=== PATIENT | female | born 1975 | race Hispanic/Latino ===

== ENCOUNTER 2016-09-06 16:42 | Emergency (ER) | payer MEDICARE ==
--- NOTE | 2016-09-06 18:56 | Cat Scan Report ---
FINAL REPORT PROCEDURE: CT HEAD/BRAIN WO CON TECHNIQUE: Computerized tomography of the head was performed without contrast material. HISTORY: headache/earache/hypertension COMPARISON: No prior studies are available for comparison. FINDINGS: No CT evidence of intracranial mass, hemorrhage, acute territorial infarction, or hydrocephalus. The intracranial arteries are symmetric in density. Calvarium is intact. Visualized paranasal sinuses and mastoids are aerated. IMPRESSION: No CT evidence of acute abnormality
[2016-09-06 18:59] LABS: Basophils % (Auto) 0.5 % (0.0-1.8); Eosinophils % (Auto) 1.6 % (0.0-4.3); Hematocrit 37.5 % (30.3-42.9); Mean Corpuscular HGB Conc 35 % (30-34); Mean Corpuscular Hemoglobin 30 pg (28-32); Mean Corpuscular Volume 87 fl (79-97); Platelet Count 233 K/mm3 (140-440); Red Blood Count 4.33 M/mm3 (3.65-5.03); Red Cell Distribution Width 12.9 % (13.2-15.2); White Blood Count 8.7 K/mm3 (4.5-11.0)
[2016-09-06 19:04] LABS: Anion Gap 12 mmol/L; BUN/Creatinine Ratio 14.28; Blood Urea Nitrogen 10 mg/dL (7-17); Calcium 8.8 mg/dL (8.4-10.2); Carbon Dioxide 29 mmol/L (22-30); Glucose 369 mg/dL (65-100); Potassium 3.9 mmol/L (3.6-5.0); Sodium 134 mmol/L (137-145)
[2016-09-06 23:46] VITALS: BP 193/91
--- NOTE | 2016-09-06 23:48 | Emergency Department Report ---
ED ENT HPI - General Chief complaint: Headache Stated complaint: LEFT EAR BLOCKED/PAIN Time Seen by Provider: 09/06/16 23:24 Source: patient Mode of arrival: Ambulatory Limitations: No Limitations - History of Present Illness Initial comments: 41-year-old female with past medical history insulin-dependent diabetes ( insulin pump), hypertension, impaired peripheral vision surgery presents to Hospital complaints of left ear pain. Patient complaining of left ear pain 1 week. She states that it feels like it is clogged with decreased hearing and intermittent ringing. The pain to her left ear as aching, rated 5/5 in intensity, radiates to her head. She was evaluated at [facility] and after her ear was evaluated she was told it was normal. Decongestions were suggested. Patient uses a nasal decongestions without improvement. Patient denies that her nose is congested. Patient presents with elevated blood pressure. She did not take her blood pressure last night or today. She also has increase her salty food intake the last several days. No complaints of nausea, vomiting, fever, or neck stiffness. - Related Data Previous Rx's Medication Instructions Recorded Last Taken Type Aspirin [Aspirin TAB] 325 mg PO QDAY #30 tablet 11/19/15 Unknown Rx Clopidogrel [Plavix] 75 mg PO QDAY #30 tablet 11/19/15 Unknown Rx Ibuprofen [Motrin 800 MG tab] 800 mg PO Q6H PRN #14 tablet 11/19/15 Unknown Rx Metoprolol [Lopressor TAB] 50 mg PO BID #60 tablet 11/19/15 Unknown Rx Simvastatin [Zocor TAB] 20 mg PO QHS #30 tablet 11/19/15 Unknown Rx amLODIPine [Norvasc] 10 mg PO DAILY #30 tablet 11/19/15 Unknown Rx Allergies Allergy/AdvReac Type Severity Reaction Status Date / Time No Known Allergies Allergy Verified 07/07/13 03:53 ED Dental HPI - General Chief complaint: Headache Stated complaint: LEFT EAR BLOCKED/PAIN Time Seen by Provider: 09/06/16 23:24 Source: patient Mode of arrival: Ambulatory Limitations: No Limitations - Related Data Previous Rx's Medication Instructions Recorded Last Taken Type Aspirin [Aspirin TAB] 325 mg PO QDAY #30 tablet 11/19/15 Unknown Rx Clopidogrel [Plavix] 75 mg PO QDAY #30 tablet 11/19/15 Unknown Rx Ibuprofen [Motrin 800 MG tab] 800 mg PO Q6H PRN #14 tablet 11/19/15 Unknown Rx Metoprolol [Lopressor TAB] 50 mg PO BID #60 tablet 11/19/15 Unknown Rx Simvastatin [Zocor TAB] 20 mg PO QHS #30 tablet 11/19/15 Unknown Rx amLODIPine [Norvasc] 10 mg PO DAILY #30 tablet 11/19/15 Unknown Rx Allergies Allergy/AdvReac Type Severity Reaction Status Date / Time No Known Allergies Allergy Verified 07/07/13 03:53 ED Review of Systems ROS: Stated complaint: LEFT EAR BLOCKED/PAIN Other details as noted in HPI Comment: All other systems reviewed and negative Other: Constitutional: No fevers chills Eyes: No eye pain visual changes ENT:as per hpi Neck: Denies pain Respiratory: Denies cough wheezing shortness of breath Cardiovascular: Denies chest pain, palpitations, syncope GI: Denies abdominal pain, nausea, vomiting, diarrhea : Denies dysuria Musculoskeletal: Denies back pain Skin: Denies rash, lesions, erythema Neurologic: Denies numbness, weakness Psychiatric: Denies suicidal ideation, hallucinations ED Past Medical Hx - Past Medical History Hx Hypertension: Yes Hx Congestive Heart Failure: No Hx Diabetes: Yes Hx Asthma: Yes Hx COPD: No Hx HIV: No Additional medical history: peripheral vision impaired. - Surgical History Hx Pacemaker: No Additional Surgical History: Laser surgery of her retina, cataract surgery, C- section, tubal ligation and endometrial ablation. - Social History Smoking Status: Former Smoker Substance Use Type: None - Medications Home Medications: Home Medications Medication Instructions Recorded Confirmed Last Taken Type Aspirin [Aspirin TAB] 325 mg PO QDAY #30 tablet 11/19/15 Unknown Rx Clopidogrel [Plavix] 75 mg PO QDAY #30 tablet 11/19/15 Unknown Rx Ibuprofen [Motrin 800 MG tab] 800 mg PO Q6H PRN #14 tablet 11/19/15 Unknown Rx Metoprolol [Lopressor TAB] 50 mg PO BID #60 tablet 11/19/15 Unknown Rx Simvastatin [Zocor TAB] 20 mg PO QHS #30 tablet 11/19/15 Unknown Rx amLODIPine [Norvasc] 10 mg PO DAILY #30 tablet 11/19/15 Unknown Rx ED Physical Exam - General Limitations: No Limitations - Other Other exam information: General: No limitations, patient is alert in no acute distress Head exam: Atraumatic, normocephalic Eyes exam: Normal appearance ENT: Moist mucous membrane, normal oropharynx, bilateral TMs normal without cerumen impaction, fluid, or erythema Neck exam: Normal inspection, full range of motion, no meningismus nontender Respiratory exam: Clear to auscultation bilateral, no wheezes, rales, crackles Cardiovascular: Normal rate and rhythm, normal heart sounds Abdomen: Soft, nondistended, and nontender, with normal bowel sounds, no rebound, or guarding Extremity: Full range of motion normal inspection no deformity Back: Normal Inspection, full range of motion, no tenderness Neurologic: Alert, oriented x3, cranial nerves intac Psychiatric: normal affect, normal mood Skin: Warm, dry, intact ED Course Vital Signs 09/06/16 17:56 Temperature 98.3 F Pulse Rate 79 Respiratory 20 Rate Blood Pressure 190/100 O2 Sat by Pulse 99 Oximetry ED Medical Decision Making - Lab Data Result diagrams: 09/06/16 18:32 09/06/16 18:32 Lab Results 09/06/16 09/06/16 Range/Units 18:32 18:32 WBC 8.7 (4.5-11.0) K/mm3 RBC 4.33 (3.65-5.03) M/mm3 Hgb 13.0 (10.1-14.3) gm/dl Hct 37.5 (30.3-42.9) % MCV 87 (79-97) fl MCH 30 (28-32) pg MCHC 35 H (30-34) % RDW 12.9 L (13.2-15.2) % Plt Count 233 (140-440) K/mm3 Lymph % (Auto) 26.1 (13.4-35.0) % [place] % (Auto) 5.6 (0.0-7.3) % Eos % (Auto) 1.6 (0.0-4.3) % Baso % (Auto) 0.5 (0.0-1.8) % Lymph # 2.3 (1.2-5.4) K/mm3 [place] # 0.5 (0.0-0.8) K/mm3 Eos # 0.1 (0.0-0.4) K/mm3 Baso # 0.0 (0.0-0.1) K/mm3 Seg Neutrophils % 66.2 (40.0-70.0) % Seg Neutrophils # 5.7 (1.8-7.7) K/mm3 Sodium 134 L (137-145) mmol/L Potassium 3.9 (3.6-5.0) mmol/L Chloride 97.0 L (98-107) mmol/L Carbon Dioxide 29 (22-30) mmol/L Anion Gap 12 mmol/L BUN 10 (7-17) mg/dL Creatinine 0.7 (0.7-1.2) mg/dL Estimated GFR > 60 ml/min BUN/Creatinine Ratio 14.28 % Glucose 369 H (65-100) mg/dL Calcium 8.8 (8.4-10.2) mg/dL Troponin T < 0.010 (0.00-0.029) ng/mL - Medical Decision Making Patient is blood pressures elevated since she did not take her blood pressure medication last night or tonight. Patient also has elevated glucose and states that she did not realize her insulin pump was not properly attached for 2 hours while she was in the waiting room. She gave herself a bolus of 5 units. But sugar 422 here in the ED and patient gave herself another bolus and plan to check her sugar at home. Patient provided her evening dose of meds for her blood pressure prior to discharge. Patient is currently on fluticasone nasal spray however, patient does not have signs symptoms of allergic rhinitis and therefore I told her she may discontinue this medication. I Suggested that she needs ENT follow-up. - Differential Diagnosis tinnitus, fluid behind the ear, perforated ear drum Critical Care Time: No Critical care attestation.: If time is entered above; I have spent that time in minutes in the direct care of this critically ill patient, excluding procedure time. ED Disposition Clinical Impression: Ear pain, left, Tinnitus, HTN (hypertension), Insulin dependent diabetes mellitus Disposition: DC-01 TO HOME OR SELFCARE Is pt being admited?: No Does the pt Need Aspirin: No Condition: Stable Instructions: Hypertension (ED), Diabetes Mellitus Type 2 in Adults (ED), Earache (ED) Additional Instructions: Continue current medication as prescribed. Continue to monitor your glucose level and blood pressure at home. Do not miss any doses of the medication. Follow-up with either ENT doctor provided for further workup of your ear pain. Referrals: JAX LENNON MD [Staff Physician] - 3-5 Days CERENKO,BRIAN, MD [Staff Physician] - 3-5 Days Time of Disposition: 23:52
[2016-09-06] MEDS ORDERED: LOPRESSOR PO ONE (23:49)
[2016-09-06] MEDS ORDERED: NORVASC PO ONE (23:49)
== END 2016-09-07 00:03 | disposition home or self-care (01) ==
LOC: ED 16:42
DX: H93.12 Tinnitus, left ear (principal); H92.02 Otalgia, left ear; I10 Essential (primary) hypertension; E10.9 Type 1 diabetes mellitus without complications; J45.909 Unspecified asthma, uncomplicated; Z79.4 Long term (current) use of insulin; Z87.891 Personal history of nicotine dependence
CPT/HCPCS: 36415; 70450; 80048; 82962; 84484; 85025; 93005; 93010; 99284